=== PATIENT | male | born 1975 | race Caucasian/White ===

== ENCOUNTER 2017-03-09 15:52 | Inpatient (IN) | payer OTHER ==
[~2017-03-09] VITALS: Ht 167.6 cm; Wt 95.2 kg
[2017-03-09 17:29] LABS: microscopic required? YES; urine erythrocyte NEGATIVE (NEGATIVE)
[2017-03-09 18:09] LABS: BASOPHIL % 0.4 % (0-2); PLATELET COUNT 214 x10^3mcL (130-400); RED CELL DISTRIBUTION WIDTH 12.4 % (11.5-14.5)
[2017-03-09 18:13] LABS: CALCIUM 8.7 mg/dL (8.5-10.1); CARBON DIOXIDE 26.1 mmol/L (21-32); CHLORIDE SERUM 98 mmol/L (98-107); CREATININE SERUM 0.9 mg/dL (0.7-1.3); GFR1 > 60 mL/min; GLUCOSE SERUM 266 mg/dL (74-106); POTASSIUM SERUM 3.8 mmol/L (3.5-5.1); SODIUM SERUM 135 mmol/L (136-145)
[2017-03-09 18:17] LABS: ALBUMIN 3.5 g/dL (3.4-5.0); ALKALINE PHOSPHATASE 107 U/L (46-116); ALT/SGPT 57 U/L (16-63); AMYLASE 62 U/L (25-115); AST/SGOT 47 U/L (15-37); LIPASE 136 IU/L (73-393); TOTAL PROTEIN, SERUM 7.4 g/dL (6.4-8.2)
[2017-03-09] MEDS ORDERED: METFORMIN HCL850 MG PO (19:33)
[2017-03-09] MEDS ORDERED: LANTUS SOLOS100 U/M1 PO (19:33)
[2017-03-09 19:35] LABS: AMPHETAMINE QUAL UR NONE DETECTED (NEG <=1000)
[2017-03-09 19:35] LABS: HDL CHOLESTEROL 40 mg/dL (40-60); MAGNESIUM 1.9 mg/dL (1.8-2.4); PHOSPHOROUS 3.4 mg/dL (2.5-4.9)
[2017-03-09 19:37] LABS: CHOLESTEROL 268 mg/dL (<200); CHOLESTEROL/HDL RATIO 6.7; TRIGLYCERIDES 936 mg/dL (<150)
[2017-03-09 19:44] LABS: T3 TOTAL 1.04 ng/mL
[2017-03-09 20:34] VITALS: BP 140/92
[2017-03-09 20:35] LABS: FREE T4 0.98 ng/dL (0.76-1.46); FREE THYROXINE INDEX 2.7 ug/dL (1.4-4.5); T4(THYROXINE) 7.2 ug/dL (4.7-13.3)
[2017-03-09] MEDS ORDERED: LOSARTAN POTASS1 TA6 PO ×2 (21:12→21:45)
[2017-03-09] MEDS ORDERED: GABAPENTIN100 M2 PO (21:15)
[2017-03-09] MEDS ORDERED: AMLODIPINE BESY10 M2 PO (21:45)
[2017-03-10 05:55] VITALS: BP 146/88
[2017-03-10 06:00] VITALS: BP 152/106
[2017-03-10 06:16] LABS: BASOPHIL % 0.5 % (0-2); PLATELET COUNT 177 x10^3mcL (130-400); RED CELL DISTRIBUTION WIDTH 12.3 % (11.5-14.5)
[2017-03-10 06:30] LABS: CALCIUM 8.3 mg/dL (8.5-10.1); CARBON DIOXIDE 27.4 mmol/L (21-32); CHLORIDE SERUM 101 mmol/L (98-107); CREATININE SERUM 0.9 mg/dL (0.7-1.3); GFR1 > 60 mL/min; GLUCOSE SERUM 234 mg/dL (74-106); POTASSIUM SERUM 3.9 mmol/L (3.5-5.1); SODIUM SERUM 139 mmol/L (136-145)
[2017-03-10 10:09] VITALS: BP 144/95
[2017-03-10 14:47] VITALS: BP 144/101
[2017-03-10 18:03] VITALS: BP 144/79
[2017-03-10 21:12] VITALS: BP 130/87
[2017-03-11 05:55] VITALS: BP 137/85
[2017-03-11 06:39] LABS: CALCIUM 8.4 mg/dL (8.5-10.1); CARBON DIOXIDE 27.8 mmol/L (21-32); CHLORIDE SERUM 103 mmol/L (98-107); CREATININE SERUM 0.8 mg/dL (0.7-1.3); GFR1 > 60 mL/min; GLUCOSE SERUM 185 mg/dL (74-106); MAGNESIUM 1.8 mg/dL (1.8-2.4); PHOSPHOROUS 3.3 mg/dL (2.5-4.9); POTASSIUM SERUM 3.7 mmol/L (3.5-5.1); SODIUM SERUM 140 mmol/L (136-145)
[2017-03-11 06:48] LABS: BASOPHIL % 0.5 % (0-2); PLATELET COUNT 179 x10^3mcL (130-400); RED CELL DISTRIBUTION WIDTH 12.6 % (11.5-14.5)
[2017-03-11 10:00] VITALS: BP 147/100
[2017-03-11] MEDS ORDERED: COZ50 PO (11:45)
[2017-03-11] MEDS ORDERED: AMB5 PO (11:46)
[2017-03-11 12:41] VITALS: BP 142/95
[2017-03-11 12:45] VITALS: BP 142/95
[2017-03-11] MEDS ORDERED: NORCO1 TA1 PO (12:52)
== END 2017-03-11 14:53 | disposition home or self-care (01) | DRG 391 ==
LOC: ED 15:52 → DU 18:57
PROVIDERS: Emergency Medicine; Family Medicine; ADMIT Family Medicine
DX: K57.90 Diverticulosis of intestine, part unspecified, without perforation or abscess without bleeding (principal); N17.0 Acute kidney failure with tubular necrosis; N12 Tubulo-interstitial nephritis, not specified as acute or chronic; D68.69 Other thrombophilia; E87.1 Hypo-osmolality and hyponatremia; I10 Essential (primary) hypertension; E11.65 Type 2 diabetes mellitus with hyperglycemia; E02 Subclinical iodine-deficiency hypothyroidism; E66.9 Obesity, unspecified; E78.5 Hyperlipidemia, unspecified; K40.90 Unilateral inguinal hernia, without obstruction or gangrene, not specified as recurrent; E11.9 Type 2 diabetes mellitus without complications; Z53.29 Procedure and treatment not carried out because of patient's decision for other reasons; E11.40 Type 2 diabetes mellitus with diabetic neuropathy, unspecified; R74.0 Nonspecific elevation of levels of transaminase and lactic acid dehydrogenase [LDH]; Z79.4 Long term (current) use of insulin; Z68.33 Body mass index [BMI] 33.0-33.9, adult; Z79.899 Other long term (current) drug therapy; Z68.31 Body mass index [BMI] 31.0-31.9, adult; Z79.84 Long term (current) use of oral hypoglycemic drugs
CPT/HCPCS: 82962; 83880; 84439; J0696; J1815; J1956; J2270; J2405; J3490; J7030; Q0092

== ENCOUNTER 2018-03-11 05:43 | Inpatient (IN) | payer OTHER ==
[~2018-03-11] VITALS: Ht 167.6 cm; Wt 90.0 kg
[~2018-03-11 05:43] MED LIST: AMB5 PO; AMLODIPINE BESY10 M2 PO; COZ50 PO; GABAPENTIN100 M2 PO; LANTUS SOLOS100 U/M1 PO; LOSARTAN POTASS1 TA6 PO; METFORMIN HCL850 MG PO; NORCO1 TA1 PO
[2018-03-11 05:49] VITALS: Ht 167.6 cm; Wt 90.0 kg
[2018-03-11] MEDS ORDERED: ATENOLOL25 MG (06:43)
[2018-03-11 06:48] LABS: BASOPHIL % 0.4 % (0-2); PLATELET COUNT 154 x10^3mcL (130-400); RED CELL DISTRIBUTION WIDTH 12.2 % (11.5-14.5)
[2018-03-11 07:12] LABS: microscopic required? NO
[2018-03-11 07:33] LABS: ALKALINE PHOSPHATASE 116 U/L (46-116); ALT/SGPT 58 U/L (16-63); AST/SGOT 47 U/L (15-37); BILIRUBIN TOTAL 0.41 mg/dL (0.20-1.00); CALCIUM 8.3 mg/dL (8.5-10.1); CARBON DIOXIDE 23.7 mmol/L (21-32); CHLORIDE SERUM 98 mmol/L (98-107); CREATININE SERUM 0.9 mg/dL (0.7-1.3); GFR1 > 60 mL/min; POTASSIUM SERUM 3.9 mmol/L (3.5-5.1); SODIUM SERUM 137 mmol/L (136-145); TOTAL PROTEIN, SERUM 6.9 g/dL (6.4-8.2)
[2018-03-11 07:34] LABS: ALBUMIN 3.3 g/dL (3.4-5.0)
[2018-03-11 07:35] LABS: GLUCOSE SERUM 618 mg/dL (74-106)
[2018-03-11 07:43] LABS: AMYLASE 57 U/L (25-115); HDL CHOLESTEROL 38 mg/dL (40-60); LIPASE 214 IU/L (73-393); MAGNESIUM 1.9 mg/dL (1.8-2.4); PHOSPHOROUS 2.5 mg/dL (2.5-4.9)
[2018-03-11 07:45] LABS: CHOLESTEROL 242 mg/dL (<200); CHOLESTEROL/HDL RATIO 6.4; TRIGLYCERIDES 594 mg/dL (<150)
[2018-03-11 07:48] LABS: FREE T4 0.87 ng/dL (0.76-1.46); FREE THYROXINE INDEX 2.5 ug/dL (1.4-4.5); T4(THYROXINE) 7.7 ug/dL (4.7-13.3)
[2018-03-11 08:06] VITALS: BP 168/107
[2018-03-11 08:15] LABS: UA SPECIFIC GRAVITY <=1.005 (1.005-1.035); urine erythrocyte NEGATIVE (NEGATIVE)
[2018-03-11 08:16] LABS: T3 TOTAL 0.97 ng/mL
[2018-03-11 08:38] LABS: AMPHETAMINE QUAL UR NONE DETECTED (See below)
[2018-03-11 11:49] VITALS: BP 173/104
[2018-03-11 15:28] VITALS: BP 156/96
[2018-03-11 16:58] LABS: BASOPHIL % 0.4 % (0-2); PLATELET COUNT 177 x10^3mcL (130-400); RED CELL DISTRIBUTION WIDTH 12.3 % (11.5-14.5)
[2018-03-11 17:01] LABS: CALCIUM 8.9 mg/dL (8.5-10.1); CARBON DIOXIDE 31.2 mmol/L (21-32); CHLORIDE SERUM 101 mmol/L (98-107); CREATININE SERUM 0.9 mg/dL (0.7-1.3); GFR1 > 60 mL/min; GLUCOSE SERUM 267 mg/dL (74-106); POTASSIUM SERUM 3.7 mmol/L (3.5-5.1); SODIUM SERUM 140 mmol/L (136-145)
[2018-03-11 21:28] VITALS: BP 129/96
[2018-03-12 05:07] VITALS: BP 151/103
[2018-03-12 07:38] LABS: BASOPHIL % 0.5 % (0-2); PLATELET COUNT 159 x10^3mcL (130-400); RED CELL DISTRIBUTION WIDTH 12.3 % (11.5-14.5)
[2018-03-12 08:09] LABS: CALCIUM 8.1 mg/dL (8.5-10.1); CARBON DIOXIDE 27.9 mmol/L (21-32); CHLORIDE SERUM 101 mmol/L (98-107); CREATININE SERUM 0.8 mg/dL (0.7-1.3); GFR1 > 60 mL/min; GLUCOSE SERUM 267 mg/dL (74-106); MAGNESIUM 1.8 mg/dL (1.8-2.4); PHOSPHOROUS 3.4 mg/dL (2.5-4.9); POTASSIUM SERUM 3.3 mmol/L (3.5-5.1); SODIUM SERUM 138 mmol/L (136-145)
[2018-03-12 08:23] VITALS: BP 154/103
[2018-03-12 11:24] VITALS: BP 161/106
[2018-03-12 12:28] VITALS: BP 189/118
[2018-03-12 13:31] VITALS: BP 170/109
[2018-03-12 16:54] VITALS: BP 169/111
== END 2018-03-12 19:42 | disposition short-term general hospital (02) | DRG 871 ==
LOC: ED 05:43 → DU 06:26 → IC 06:26 → DU 07:43 → IC 09:21 → DU 18:15
PROVIDERS: Emergency Medicine Emergency Medical Services; Family Medicine
DX: A41.9 Sepsis, unspecified organism (principal); E11.10 Type 2 diabetes mellitus with ketoacidosis without coma; E44.0 Moderate protein-calorie malnutrition; N10 Acute pyelonephritis; D68.59 Other primary thrombophilia; R65.20 Severe sepsis without septic shock; E11.65 Type 2 diabetes mellitus with hyperglycemia; E86.0 Dehydration; I16.0 Hypertensive urgency; E78.00 Pure hypercholesterolemia, unspecified; Z68.32 Body mass index [BMI] 32.0-32.9, adult; Z79.84 Long term (current) use of oral hypoglycemic drugs; M54.30 Sciatica, unspecified side; E83.51 Hypocalcemia
CPT/HCPCS: 83880; 84439; J1815; J1885; J2543; J3490; J7030; Q0092; Q0162

== ENCOUNTER 2020-09-24 23:01 | Emergency (ER) | payer OTHER ==
[~2020-09-24] VITALS: Ht 167.6 cm; Wt 86.2 kg
[~2020-09-24 23:01] MED LIST changes: +ATENOLOL25 MG
[2020-09-24 23:11] VITALS: Ht 167.6 cm; Wt 86.2 kg
[2020-09-25 01:24] LABS: BASOPHIL % 0.7 % (0.2-1.5); PLATELET COUNT 223 x10^3mcL (152-348); RED CELL DISTRIBUTION WIDTH 12.9 % (12.1-16.2)
[2020-09-25 01:39] LABS: CALCIUM 8.4 mg/dL (8.5-10.1); CARBON DIOXIDE 28.1 mmol/L (21-32); CHLORIDE SERUM 101 mmol/L (98-107); CREATININE SERUM 1.3 mg/dL (0.7-1.3); GFR1 > 60 mL/min; GLUCOSE SERUM 171 mg/dL (74-106); POTASSIUM SERUM 3.8 mmol/L (3.5-5.1); SODIUM SERUM 136 mmol/L (136-145)
[2020-09-25 01:44] LABS: ALBUMIN 3.7 g/dL (3.4-5.0); ALKALINE PHOSPHATASE 93 U/L (46-116); ALT/SGPT 31 U/L (16-63); AST/SGOT 8 U/L (15-37); BILIRUBIN TOTAL 0.39 mg/dL (0.20-1.00); TOTAL PROTEIN, SERUM 6.7 g/dL (6.4-8.2)
[2020-09-25 03:29] VITALS: BP 122/62
== END 2020-09-25 03:51 | disposition home or self-care (01) ==
LOC: ED 23:01
PROVIDERS: Emergency Medicine
DX: E11.65 Type 2 diabetes mellitus with hyperglycemia (principal); I10 Essential (primary) hypertension
CPT/HCPCS: J7030